=== PATIENT | male | born 1960 | race Two or more races ===

== ENCOUNTER 2025-06-27 08:15 | Inpatient (IN) | payer OTHER ==
[~2025-06-27] VITALS: Ht 182.9 cm; Wt 95.3 kg
[2025-06-27] MEDS ORDERED: RESTORIL30 M1 PO (10:56)
[2025-06-27] MEDS ORDERED: CLONAZEPAM2 M1 PO (10:56)
[2025-06-27] MEDS ORDERED: ZESTRIL30 MG PO (10:56)
[2025-06-27] MEDS ORDERED: SIMVASTATIN5 MG PO (10:56)
[2025-06-27 11:05] LABS: URINE APPEARANCE Clear; URINE BILIRRUBIN Negative (NEGATIVE); URINE BLOOD Negative; URINE COLOR Yellow; URINE GLUCOSE Negative (NEGATIVE); URINE KETONE Negative (NEGATIVE); URINE LEUKOCYTE Negative; URINE NITRATE Negative; URINE PROTEIN Negative (NEGATIVE); URINE UROBILINOGEN 1.0 E.U./dl
[2025-06-27 11:15] VITALS: BP 149/91
[2025-06-27 11:35] LABS: BASO % 0.9 % (0.1-1.2); EOS # 0.77 (0.04-0.54); EOS % 6.8 % (0.7-7.0); LYMPH # 2.57 (1.18-3.74); LYMPH % 22.6 % (19.3-53.1); MEAN PLATELET VOLUME 9.40 fl (9.4-12.4); MONO # 1.12 (0.24-0.82); MONO % 9.9 % (4.7-12.5); NEUT # 6.76 (1.56-6.13); NEUT % 59.4 % (34.0-71.1); RED CELL DISTRIBUTION WIDTH 14.4 % (11.6-14.4)
[2025-06-27 11:42] LABS: URINE BACTERIA 1.1 uL (0.0-1933); URINE CAST 0.14 uL (0.0-1.40); URINE EPITHELIAL CELLS 0.3 uL (0.0-38.8); URINE RBC 1.0 uL (0.0-20.8); URINE WBC 1.5 uL (0.0-23.2)
[2025-06-27 11:57] LABS: INR 0.98
[2025-06-27 12:05] LABS: ALT/SGPT 80.0 U/L (12-78); AST/SGOT 46.0 U/L (15-37); BILIRUBIN TOTAL 0.47 mg/dL (0.3-1.2); BUN CREA RATIO 23.0 (7.0-25.0); CREATININE SERUM 0.69 mg/dL (0.55-1.02); GFR 85.12; GLOBULINA 3.5 G/DL (2.4-3.5); GLUCOSE FASTING 90.0 mg/dL (65-100); OSMOLALITY SERUM 282.0 MOSM/KG (275-295)
[2025-07-03] MEDS ORDERED: CEFAZOLIN SODIUM 1,000 MG VIAL ONE ×2 (10:06→17:00)
[2025-07-03] MEDS ORDERED: BUPIVACAINE HCL/MPF 0.5% 30ML VIAL ONE (11:47)
[2025-07-03] MEDS ORDERED: TRANEXAMIC ACID 100MG/1ML (1000MG) AMPUL ONE (11:47)
[2025-07-03] MEDS ORDERED: VANCOMYCIN HCL 1,000 MG VIAL ONE (11:47)
[2025-07-03] MEDS ORDERED: ISOPROPYL ALCOHOL 30 ML OUNCE TOP ONE (11:47)
[2025-07-03] MEDS ORDERED: KETOROLAC TROMETHAMINE 60 MG VIAL IM ONE (11:47)
[2025-07-03] MEDS ORDERED: LIDOCAINE HCL 1%/EPINEPHRINE 20ML VIAL IJ ONE (11:48)
[2025-07-03] MEDS ORDERED: ONDANSETRON HCL 2 MG/ML VIAL IV PRN (12:00)
[2025-07-03] MEDS ORDERED: MORPHINE SULFATE 4 MG/ML CARTRIDGE IV ONE (12:00)
[2025-07-03] MEDS ORDERED: MORPHINE SULFATE 4 MG/ML VIAL IV SCH (12:00)
[2025-07-03] MEDS ORDERED: OxyCODONE HCL 5 MG TABLET (ROXICODONE) PO SCH (12:00)
[2025-07-03] MEDS ORDERED: CEFAZOLIN SODIUM 1,000 MG VIAL IV SCH (12:00)
[2025-07-03] MEDS ORDERED: ENALAPRILAT DIHYDRATE 1.25 MG/ML VIAL IV PRN (16:30)
[2025-07-03] MEDS ORDERED: CLONAZEPAM 1 MG TABLET PO SCH (17:00)
[2025-07-03] MEDS ORDERED: MORPHINE SULFATE 4 MG/ML VIAL IV ONE ×2 (17:20→17:50)
[2025-07-03] MEDS ORDERED: hydrALAZINE HCL 20 MG VIAL ONE (17:51)
[2025-07-03] MEDS ORDERED: ENALAPRILAT DIHYDRATE 1.25 MG/ML VIAL IV ONE (19:34)
[2025-07-03] MEDS ORDERED: GABAPENTIN 100 MG CAPSULE PO ONE (20:23)
[2025-07-03] MEDS ORDERED: TEMAZEPAM 15 MG CAPSULE PO SCH (21:00)
[2025-07-03] MEDS ORDERED: GABAPENTIN 100 MG CAPSULE PO SCH (21:00)
[2025-07-03] MEDS ORDERED: ORPHENADRINE CITRATE 100 MG TABLET PO SCH (21:00)
[2025-07-04 00:25] VITALS: BP 148/93; O2SAT 96
[2025-07-04 06:54] LABS: BASO % 0.3 % (0.1-1.2); EOS # 0.00 (0.04-0.54); EOS % 0.0 % (0.7-7.0); LYMPH # 1.46 (1.18-3.74); LYMPH % 9.0 % (19.3-53.1); MEAN PLATELET VOLUME 9.50 fl (9.4-12.4); MONO # 2.52 (0.24-0.82); NEUT # 12.18 (1.56-6.13); NEUT % 74.9 % (34.0-71.1); RED CELL DISTRIBUTION WIDTH 14.0 % (11.6-14.4)
[2025-07-04 07:07] LABS: MONO % 15.5 % (4.7-12.5)
[2025-07-04 08:32] VITALS: BP 133/92; O2SAT 97
[2025-07-04] MEDS ORDERED: RIVAROXABAN 10 MG TAB PO SCH (09:00)
[2025-07-04] MEDS ORDERED: LISINOPRIL PO SCH (09:00)
[2025-07-04 11:44] LABS: COVID-19 AG NEGATIVE (NEGATIVE)
[2025-07-04 12:15] LABS: ALT/SGPT 46.0 U/L (12-78); AST/SGOT 37.0 U/L (15-37); BILIRUBIN TOTAL 1.25 mg/dL (0.3-1.2); BUN CREA RATIO 16.0 (7.0-25.0); CREATININE SERUM 0.93 mg/dL (0.70-1.30); GFR 81.29; GLOBULINA 3.6 G/DL (2.4-3.5); GLUCOSE FASTING 113.0 mg/dL (65-100); OSMOLALITY SERUM 275.0 MOSM/KG (275-295)
[2025-07-04 16:00] VITALS: BP 175/99; O2SAT 97
[2025-07-04] MEDS ORDERED: Cyanocobalamin/Mecobalamin 1 TAB.SL SL SCH (17:00)
[2025-07-05 01:05] VITALS: BP 152/89; O2SAT 98
[2025-07-05 06:55] LABS: BASO % 0.2 % (0.1-1.2); EOS # 0.01 (0.04-0.54); EOS % 0.1 % (0.7-7.0); LYMPH # 1.98 (1.18-3.74); LYMPH % 13.1 % (19.3-53.1); MEAN PLATELET VOLUME 9.60 fl (9.4-12.4); MONO # 1.99 (0.24-0.82); NEUT # 11.05 (1.56-6.13); NEUT % 72.9 % (34.0-71.1); RED CELL DISTRIBUTION WIDTH 13.9 % (11.6-14.4)
[2025-07-05 07:06] LABS: MONO % 13.2 % (4.7-12.5)
[2025-07-05] MEDS ORDERED: XARELTO10 MG PO (12:31)
[2025-07-05] MEDS ORDERED: NORFLEX100MG PO (12:31)
[2025-07-05] MEDS ORDERED: GABAPENTIN100 MG PO (12:32)
[2025-07-05] MEDS ORDERED: PERCOCET 5-3251 EACH PO (12:33)
[2025-07-05 16:28] VITALS: BP 153/85; O2SAT 98
== END 2025-07-05 18:47 | disposition home or self-care (01) | DRG 470 ==
LOC: SURH 07-03 07:00 → EDSEX 07-03 09:00 → SURG 07-03 09:00 → O/R 07-03 09:00 → SURH 07-03 16:03 → SURG 07-03 16:08
PROVIDERS: ADMIT Orthopaedic Surgery; ATTEND Orthopaedic Surgery
PROC: 0SRD0J9 Replacement of Left Knee Joint with Synthetic Substitute, Cemented, Open Approach (ICD-10-PCS; principal; 2025-07-03 07:00)
DX: M17.12 Unilateral primary osteoarthritis, left knee (principal); D62 Acute posthemorrhagic anemia; M85.662 Other cyst of bone, left lower leg; I10 Essential (primary) hypertension